=== PATIENT | male | born 1970 | race American Indian/Alaskan Native ===

== ENCOUNTER 2017-01-27 17:43 | Emergency (ER) | payer SELFPAY ==
[2017-01-27 20:05] LABS: Basophils % (Auto) 0.2 % (0.0-1.8); Eosinophils % (Auto) 1.8 % (0.0-4.3); Hematocrit 40.8 % (35.5-45.6); Mean Corpuscular HGB Conc 32 % (32-34); Mean Corpuscular Hemoglobin 28 pg (28-32); Mean Corpuscular Volume 87 fl (84-94); Platelet Count 379 K/mm3 (140-440); Red Blood Count 4.71 M/mm3 (3.65-5.03); Red Cell Distribution Width 15.5 % (13.2-15.2); White Blood Count 10.2 K/mm3 (4.5-11.0)
[2017-01-27 20:25] LABS: Alanine Aminotransferase 17 units/L (7-56); Albumin 3.9 g/dL (3.9-5); Alkaline Phosphatase 73 units/L (35-129); Anion Gap 17 mmol/L; Blood Urea Nitrogen 9 mg/dL (9-20); Calcium 9.1 mg/dL (8.4-10.2); Carbon Dioxide 25 mmol/L (22-30); Glucose 85 mg/dL (75-100); Lipase 25 units/L (13-60); Potassium 4.8 mmol/L (3.6-5.0); Sodium 140 mmol/L (137-145); Total Protein 7.8 g/dL (6.3-8.2)
[2017-01-28 02:40] LABS: Bilirubin,Urine NEG (Negative); Blood,Urine NEG (Negative); Ketones,Urine NEG (Negative); Leukocyte Esterase,Urine NEG (Negative); Mucus,Urine FEW /HPF; Nitrite,Urine NEG (Negative); Protein,Urine <15 mg/dL mg/dL (Negative); Urobilinogen,Urine < 2.0 mg/dL (<2.0); WBC,Urine < 1.0 /HPF (0.0-6.0)
[2017-01-28 02:41] LABS: RBC,Urine < 1.0 /HPF (0.0-6.0)
[2017-01-28] MEDS ORDERED: MORPHINE IV ONE (02:58)
[2017-01-28] MEDS ORDERED: TORADOL IV ONE (02:58)
[2017-01-28] MEDS ORDERED: NACL 0.9% 1000 ML 1,000 ML IV ONE (02:58)
--- NOTE | 2017-01-28 02:59 | Emergency Department Report ---
ED General Adult HPI - General Chief complaint: Back Pain/Injury Stated complaint: KIDNEY AND BACK PAIN Time Seen by Provider: 01/28/17 02:21 Source: patient, RN notes reviewed Mode of arrival: Ambulatory Limitations: No Limitations - History of Present Illness Initial comments: This is a 46-year-old male, the patient is previously unknown to me. Patient presents to the ER complaining of right lower quadrant pain, right flank pain, lower back pain. The pain has been going on for 3 days, it was initially in the bilateral lower backs, now is predominantly in the right lower back. There is mild testicular discomfort. No nausea, vomiting or diarrhea. The pain is sharp and achy, and increases with palpation and range of motion, and it decreases with rest. -: Gradual Location: back, abdomen Radiation: abdomen Severity scale (0 -10): 10 Quality: aching Consistency: intermittent Improves with: rest Worsens with: movement Associated Symptoms: denies other symptoms - Related Data Previous Rx's Medication Instructions Recorded Last Taken Type Permethrin 5% [Acticin 5% CREAM] 1 applicatio TP ONCE #2 tube 06/01/14 Unknown Rx amLODIPine [Norvasc] 5 mg PO DAILY #90 tab 06/01/14 Unknown Rx Ketorolac [Toradol] 10 mg PO Q6H PRN #20 tablet 01/28/17 Unknown Rx Ondansetron [Zofran Odt] 4 mg PO QID PRN #20 tab.rapdis 01/28/17 Unknown Rx oxyCODONE [Roxicodone] 5 mg PO Q6HR PRN #15 tablet 01/28/17 Unknown Rx Allergies Allergy/AdvReac Type Severity Reaction Status Date / Time Fish Containing Products Allergy Swelling Verified 01/28/17 02:35 ED Review of Systems ROS: Stated complaint: KIDNEY AND BACK PAIN Other details as noted in HPI Constitutional: denies: fever Eyes: denies: eye discharge ENT: denies: epistaxis Respiratory: denies: cough Cardiovascular: denies: chest pain Gastrointestinal: abdominal pain Genitourinary: testicular pain. denies: dysuria Musculoskeletal: back pain Skin: denies: lesions Neurological: weakness ED Past Medical Hx - Past Medical History Previous Medical History?: Yes Hx Hypertension: Yes (no meds for over one year) - Surgical History Past Surgical History?: No - Social History Smoking Status: Current Every Day Smoker Substance Use Type: Alcohol - Medications Home Medications: Home Medications Medication Instructions Recorded Confirmed Last Taken Type Permethrin 5% [Acticin 5% CREAM] 1 applicatio TP ONCE #2 tube 06/01/14 01/28/17 Unknown Rx amLODIPine [Norvasc] 5 mg PO DAILY #90 tab 06/01/14 01/28/17 Unknown Rx Ketorolac [Toradol] 10 mg PO Q6H PRN #20 tablet 01/28/17 Unknown Rx Ondansetron [Zofran Odt] 4 mg PO QID PRN #20 tab.rapdis 01/28/17 Unknown Rx oxyCODONE [Roxicodone] 5 mg PO Q6HR PRN #15 tablet 01/28/17 Unknown Rx ED Physical Exam - General Limitations: No Limitations General appearance: alert, in no apparent distress - Head Head exam: Present: atraumatic, normocephalic - Eye Eye exam: Present: normal appearance, EOMI. Absent: nystagmus - ENT ENT exam: Present: normal exam, normal orophraynx, mucous membranes moist, normal external ear exam - Neck Neck exam: Present: normal inspection, full ROM. Absent: tenderness, meningismus - Respiratory Respiratory exam: Present: normal lung sounds bilaterally. Absent: respiratory distress, wheezes, rales, rhonchi, stridor, chest wall tenderness - Cardiovascular Cardiovascular Exam: Present: regular rate, normal rhythm, normal heart sounds. Absent: bradycardia, tachycardia, irregular rhythm, systolic murmur, diastolic murmur, rubs, gallop - GI/Abdominal GI/Abdominal exam: Present: soft, tenderness, normal bowel sounds. Absent: distended, guarding, rebound, rigid, pulsatile mass - Rectal Rectal exam: Present: deferred - exam: Present: normal inspection, testicular tenderness, other (there is a normal cremasteric reflex bilaterally. There is no testicular swelling. There is mild bilateral testicular tenderness.) - Extremities Exam Extremities exam: Present: normal inspection, full ROM, normal capillary refill. Absent: pedal edema, joint swelling, calf tenderness - Back Exam Back exam: Present: normal inspection, full ROM. Absent: tenderness, CVA tenderness (R), CVA tenderness (L), muscle spasm, paraspinal tenderness, vertebral tenderness - Neurological Exam Neurological exam: Present: alert, oriented X3, other (Extraocular movements intact. Tongue midline. No facial droop. Facial sensation intact to light touch in the V1, V2, V3 distribution bilaterally. 5 and 5 strength in 4 extremities.. Sensation is intact to light touch in 4 extremities.). Absent: motor sensory deficit - Psychiatric Psychiatric exam: Present: normal affect, normal mood - Skin Skin exam: Present: warm, dry, intact, normal color. Absent: rash ED Course Vital Signs 01/27/17 01/28/17 01/28/17 19:43 02:20 03:00 Temperature 97.5 F L Pulse Rate 71 72 63 Respiratory 18 20 20 Rate Blood Pressure 176/113 Blood Pressure 199/124 180/116 [Left] O2 Sat by Pulse 100 99 100 Oximetry 01/28/17 01/28/17 03:15 04:00 Temperature Pulse Rate 75 85 Respiratory 16 20 Rate Blood Pressure Blood Pressure 164/108 160/91 [Left] O2 Sat by Pulse 100 100 Oximetry - Reevaluation(s) Reevaluation #1: 01/28/17 05:26 Testicular ultrasound negative for acute findings. The left testicle is small than the right, may demonstrate chronic findings from prior infection or torsion. However Doppler waveforms are normal at this time. CT scan of the abdomen and pelvis is negative. Additional pain medication is ordered, patient will be discharged with pain medication, instructions to follow up with outpatient primary care and urology. ED Medical Decision Making - Lab Data Result diagrams: 01/27/17 19:51 01/27/17 19:51 Vital Signs 01/27/17 01/28/17 01/28/17 19:43 02:20 03:00 Temperature 97.5 F L Pulse Rate 71 72 63 Respiratory 18 20 20 Rate Blood Pressure 176/113 Blood Pressure 199/124 180/116 [Left] O2 Sat by Pulse 100 99 100 Oximetry 01/28/17 03:15 Temperature Pulse Rate 75 Respiratory 16 Rate Blood Pressure Blood Pressure 164/108 [Left] O2 Sat by Pulse 100 Oximetry Lab Results 01/27/17 01/27/17 01/28/17 Range/Units 19:51 19:51 02:58 WBC 10.2 (4.5-11.0) K/mm3 RBC 4.71 (3.65-5.03) M/mm3 Hgb 13.0 (11.8-15.2) gm/dl Hct 40.8 (35.5-45.6) % MCV 87 (84-94) fl MCH 28 (28-32) pg MCHC 32 (32-34) % RDW 15.5 H (13.2-15.2) % Plt Count 379 (140-440) K/mm3 Lymph % (Auto) 27.8 (13.4-35.0) % [place] % (Auto) 6.0 (0.0-7.3) % Eos % (Auto) 1.8 (0.0-4.3) % Baso % (Auto) 0.2 (0.0-1.8) % Lymph # 2.8 (1.2-5.4) K/mm3 [place] # 0.6 (0.0-0.8) K/mm3 Eos # 0.2 (0.0-0.4) K/mm3 Baso # 0.0 (0.0-0.1) K/mm3 Seg Neutrophils % 64.2 (40.0-70.0) % Seg Neutrophils # 6.5 (1.8-7.7) K/mm3 Sodium 140 (137-145) mmol/L Potassium 4.8 (3.6-5.0) mmol/L Chloride 103.0 (98-107) mmol/L Carbon Dioxide 25 (22-30) mmol/L Anion Gap 17 mmol/L BUN 9 (9-20) mg/dL Creatinine 0.9 (0.8-1.5) mg/dL Estimated GFR > 60 ml/min BUN/Creatinine Ratio 10.00 % Glucose 85 (75-100) mg/dL Calcium 9.1 (8.4-10.2) mg/dL Total Bilirubin 0.20 (0.1-1.2) mg/dL AST 19 (5-40) units/L ALT 17 (7-56) units/L Alkaline Phosphatase 73 (35-129) units/L Total Creatine Kinase 92 (55-170) units/L Total Protein 7.8 (6.3-8.2) g/dL Albumin 3.9 (3.9-5) g/dL Albumin/Globulin Ratio 1.0 % Lipase 25 (13-60) units/L Urine Color (Yellow) Urine Turbidity (Clear) Urine pH (5.0-7.0) Ur Specific [place] (1.003-1.030) Urine Protein (Negative) mg/dL Urine Glucose (UA) (Negative) mg/dL Urine Ketones (Negative) mg/dL Urine Blood (Negative) Urine Nitrite (Negative) Urine Bilirubin (Negative) Urine Urobilinogen (<2.0) mg/dL Ur Leukocyte Esterase (Negative) Urine WBC (Auto) (0.0-6.0) /HPF Urine RBC (Auto) (0.0-6.0) /HPF Urine Mucus /HPF 01/28/17 Range/Units Unknown WBC (4.5-11.0) K/mm3 RBC (3.65-5.03) M/mm3 Hgb (11.8-15.2) gm/dl Hct (35.5-45.6) % MCV (84-94) fl MCH (28-32) pg MCHC (32-34) % RDW (13.2-15.2) % Plt Count (140-440) K/mm3 Lymph % (Auto) (13.4-35.0) % [place] % (Auto) (0.0-7.3) % Eos % (Auto) (0.0-4.3) % Baso % (Auto) (0.0-1.8) % Lymph # (1.2-5.4) K/mm3 [place] # (0.0-0.8) K/mm3 Eos # (0.0-0.4) K/mm3 Baso # (0.0-0.1) K/mm3 Seg Neutrophils % (40.0-70.0) % Seg Neutrophils # (1.8-7.7) K/mm3 Sodium (137-145) mmol/L Potassium (3.6-5.0) mmol/L Chloride (98-107) mmol/L Carbon Dioxide (22-30) mmol/L Anion Gap mmol/L BUN (9-20) mg/dL Creatinine (0.8-1.5) mg/dL Estimated GFR ml/min BUN/Creatinine Ratio % Glucose (75-100) mg/dL Calcium (8.4-10.2) mg/dL Total Bilirubin (0.1-1.2) mg/dL AST (5-40) units/L ALT (7-56) units/L Alkaline Phosphatase (35-129) units/L Total Creatine Kinase (55-170) units/L Total Protein (6.3-8.2) g/dL Albumin (3.9-5) g/dL Albumin/Globulin Ratio % Lipase (13-60) units/L Urine Color Straw (Yellow) Urine Turbidity Clear (Clear) Urine pH 6.0 (5.0-7.0) Ur Specific [place] 1.008 (1.003-1.030) Urine Protein <15 mg/dl (Negative) mg/dL Urine Glucose (UA) Neg (Negative) mg/dL Urine Ketones Neg (Negative) mg/dL Urine Blood Neg (Negative) Urine Nitrite Neg (Negative) Urine Bilirubin Neg (Negative) Urine Urobilinogen < 2.0 (<2.0) mg/dL Ur Leukocyte Esterase Neg (Negative) Urine WBC (Auto) < 1.0 (0.0-6.0) /HPF Urine RBC (Auto) < 1.0 (0.0-6.0) /HPF Urine Mucus Few /HPF - Radiology Data Radiology results: report reviewed, image reviewed CT scan of the abdomen and pelvis is negative. Testicular ultrasound negative for acute findings, nonspecific chronic appearing findings noted and left testicle. - Medical Decision Making Differential diagnosis: Appendicitis, colitis, diverticulitis, psoas abscess, renal colic, epididymitis, orchitis, mechanical back pain, muscular back pain, AAA Assessment and plan: 46-year-old male with a primary complaint of lower back pain, and testicular discomfort. The patient is afebrile, with reassuring vital signs with the exception of hypertension. Retention may be secondary to pain and discomfort. Testicular ultrasound is pending, CT scan is pending, laboratory studies unremarkable, patient is treated aggressively. I will withhold antihypertensive therapy at this time, this is most likely secondary to pain, and he can follow up in outpatient primary care doctor for this. Critical care attestation.: If time is entered above; I have spent that time in minutes in the direct care of this critically ill patient, excluding procedure time. ED Disposition Clinical Impression: Back pain Disposition: DC-01 TO HOME OR SELFCARE Is pt being admited?: No Does the pt Need Aspirin: No Condition: Stable Additional Instructions: Take pain medication, nausea medication as needed/directed. Ultrasound demonstrated nonspecific findings on the left testicle, these should be followed up by a urology specialist within the next month. Dr. Saavedra is a local urology specialist. Ultrasound findings suggested the possibility of prior infection, or prior twisting of the left testicle. Please follow up with your primary care doctor within the next 7-10 days. Note that blood pressure is elevated in the emergency department, and should be followed up as recommended. Long-term complications of hypertension and elevated blood pressure includes stroke, heart attack, disability, , paralysis, loss of quality of life. Dr. Black is a local primary care doctor. Return to the ER right away with new pain, worsened pain, migration of pain, fevers, chills, lethargy, irritability, projectile vomiting, change in mental status. Referrals: PRIMARY CARE, [Primary Care Provider] - 3-5 Days DAVIS SANDERS MD [Staff Physician] - 3-5 Days NIYA BLACK MD [Staff Physician] - 3-5 Days
--- NOTE | 2017-01-28 04:55 | Ultrasound Report ---
FINAL REPORT EXAM: US TESTICULAR DOPPLER COMP HISTORY: testicular soreness COMPARISONS: None FINDINGS: Grayscale, color and spectral Doppler ultrasound evaluation of the testicles The right testicle measures 4.1 x 1.9 x 2.7 cm and demonstrates normal echotexture and color and spectral Doppler evaluation. The epididymis is within normal limits. No intra or extratesticular mass. The left testicle measures 2.9 x 2.1 x 2.3 cm and demonstrates an eccentric 5 x 2 x 3 millimeter anechoic structure, which is located at the testicular mediastinum possibly abutting tunic albuginea. Color and spectral Doppler evaluation are normal. Echogenicity of the left testicle is slightly decreased relative to the right. The epididymis is within normal limits. No intra or extratesticular mass. Trace left hydrocele. No varicoceles. IMPRESSION: No acute findings. 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 The left testicle is smaller and less echogenic than the right testicle, which may be chronic sequela prior infection or torsion.
--- NOTE | 2017-01-28 05:12 | Cat Scan Report ---
FINAL REPORT EXAM: CT ABDOMEN PELVIS W CON HISTORY: lower abd pain bilat. back pain extending to the testicles TECHNIQUE: CT images are acquired through the Abdomen and Pelvis following intravenous administration of contrast. Transaxial, coronal and sagittal reformations are provided. PRIORS: None FINDINGS: Partially visualized intrathoracic contents are unremarkable. The liver, gallbladder, pancreas, spleen, and adrenal glands are unremarkable. Left greater than right extrarenal pelvis. Kidneys show no worrisome lesions, hydronephrosis, or calculi. Urinary bladder is unremarkable. Small and large bowel are normal in caliber. Appendix is normal. No free air, free fluid, or lymphadenopathy identified. Aorta is normal in course and caliber with scattered atherosclerosis. Superficial soft tissues are unremarkable. No acute or aggressive appearing skeletal findings. IMPRESSION: No acute intra-abdominal process.
[2017-01-28] MEDS ORDERED: DILAUDID IV ONE (05:26)
[2017-01-28] MEDS ORDERED: NACL ONE (05:49)
[2017-01-28] MEDS ORDERED: CATAPRES PO ONE (06:31)
[2017-01-28 07:56] VITALS: BP 151/87
== END 2017-01-28 07:56 | disposition home or self-care (01) ==
LOC: ED 17:43
DX: M54.5 Low back pain (principal); R10.31 Right lower quadrant pain; I10 Essential (primary) hypertension; F17.210 Nicotine dependence, cigarettes, uncomplicated; Z91.013 Allergy to seafood
CPT/HCPCS: 36415; 74177; 80053; 81001; 82550; 83690; 85025; 93975; 96361; 96374; 96375; 99284; J1170; J1885; J2270; J7030; Q9967